=== PATIENT | male | born 1985 | race Caucasian/White ===

== ENCOUNTER 2018-06-11 16:22 | Emergency (ER) | payer SELFPAY ==
[~2018-06-11] VITALS: Ht 188 cm; Wt 113.4 kg
[2018-06-11] MEDS ORDERED: SODIUM CHLORIDE 0.9% 1000ML 1,000 ML IV STA (16:31)
[2018-06-11 16:46] LABS: BASOPHILS # (AUTO) 0.1 (0.0-0.1); BASOPHILS % 0.7 % (0.0-1.0); EOSINOPHILS # (AUTO) 0.3 (0.0-0.4); EOSINOPHILS % 2.2 % (0.0-6.0); HEMATOCRIT 55.4 % (38.2-49.6); HEMOGLOBIN 19.2 g/dL (14.0-18.0); LYMPHOCYTES # (AUTO) 2.4 (1.0-3.2); LYMPHOCYTES % 20.1 % (18.0-39.1); MEAN CORPUSCULAR HEMOGLOBIN 29.6 pg (28-32); MEAN CORPUSCULAR HGB CONC 34.7 g/dL (31-35); MEAN CORPUSCULAR VOLUME 85.4 fL (81-99); MONOCYTES # (AUTO) 0.8 (0.2-0.8); MONOCYTES % 6.8 % (4.4-11.3); NEUTROPHILS # (AUTO) 8.4 (2.1-6.9); NEUTROPHILS % 69.9 % (38.7-80.0); PLATELET COUNT 256 x10e3/uL (140-360); RED BLOOD COUNT 6.49 x10e6/uL (4.3-5.7); RED CELL DISTRIBUTION WIDTH 12.3 % (11.7-14.4)
[2018-06-11 16:48] LABS: BILIRUBIN,URINE 1+ (NEGATIVE); CLARITY,URINE SL CLOUDY (CLEAR); COLOR,URINE YELLOW (YELLOW); KETONES,URINE TRACE (NEGATIVE); LEUKOCYTE ESTERASE ,URINE NEGATIVE (NEGATIVE); NITRITE,URINE NEGATIVE (NEGATIVE); PROTEIN,URINE DIPSTICK 2+ (NEGATIVE); URINE UROBILINOGEN 1 mg/dL (0.2 - 1)
[2018-06-11 17:02] LABS: EPITHELIAL CELLS,URINE FEW /LPF; MUCUS,URINE MODERATE (RARE); WBC,URINE (MAN) 0-5 /HPF (0-5)
[2018-06-11 17:05] LABS: ALANINE AMINOTRANSFERASE 89 IU/L (0-55); ALBUMIN 5.3 g/dL (3.5-5.0); ALBUMIN/GLOBULIN RATIO 1.5 (0.8-2.0); ALKALINE PHOSPHATASE 87 IU/L (40-150); BLOOD UREA NITROGEN 16 mg/dL (7-26); BUN/CREATININE RATIO 11 (6-25); CALCIUM 10.6 mg/dL (8.4-10.2); CARBON DIOXIDE 26 mmol/L (22-29); CHLORIDE 96 mmol/L (98-107); CREATINE KINASE 99 IU/L (30-200); CREATININE, SERUM 1.41 mg/dL (0.72-1.25); EST GLOMERULAR FILTRATION RATE 58 ML/MIN (60-); GLUCOSE 94 mg/dL (74-118); SODIUM 138 mmol/L (136-145)
[2018-06-11] MEDS ORDERED: ONDANSETRON HCL INJ 2 MG/ML VIAL IV STA (17:08)
[2018-06-11] MEDS ORDERED: MORPHINE SULFATE INJ 4 MG/ML INJ IV STA (17:08)
[2018-06-11] MEDS ORDERED: CEFTRIAXONE SOD 250 MG VIAL IV ONE (17:15)
[2018-06-11] MEDS ORDERED: AZITHROMYCIN 250 MG TAB PO ONE (17:15)
--- NOTE | 2018-06-11 17:26 | Diagnostic Imaging Report ---
PROCEDURE: CT ABDOMEN AND PELVIS WITHOUT CONTRAST TECHNIQUE: The abdomen and pelvis were scanned utilizing a multidetector helical scanner from the diaphragm to the lesser trochanter after the oral administration of water. No IV contrast was administered per physician's request. Coronal and sagittal multiplanar reformations were obtained. COMPARISON: None. INDICATIONS: left flank, dehydrated FINDINGS: ABSENCE OF INTRAVENOUS CONTRAST DECREASES SENSITIVITY FOR DETECTION OF FOCAL LESIONS AND VASCULAR PATHOLOGY. LOWER THORAX: Unremarkable HEPATOBILIARY: Liver is in the upper limit of normal in size, measuring 16 cm in the right midclavicular line. Moderate diffuse hepatic steatosis. No focal lesions. No biliary ductal dilation. Gallbladder is unremarkable. SPLEEN: Mild splenomegaly, measuring 15.4 cm in craniocaudal diameter PANCREAS: No focal masses or ductal dilatation. ADRENALS: No adrenal nodules. KIDNEYS/URETERS: No renal, ureteral, or bladder calculi. No hydronephrosis, hydroureter, or evidence of obstruction. No significant perinephric stranding. No contour abnormalities. PELVIC ORGANS/BLADDER: The bladder is decompressed, but grossly unremarkable. Prostate is unremarkable.. PERITONEUM / RETROPERITONEUM: No free air or fluid. LYMPH NODES: No lymphadenopathy. VESSELS: Unremarkable. GI TRACT: No bowel dilation or evidence of obstruction. Appendix is well identified and normal in caliber. No pericolonic inflammatory changes. BONES AND SOFT TISSUES: No aggressive lytic lesion. Soft tissues are grossly unremarkable IMPRESSION: 1. No renal, ureteral, or bladder calculi. No hydronephrosis or obstruction. 2. Liver size in the upper limit of normal with moderate diffuse hepatic steatosis. No focal lesions. 3. Mild splenomegaly. Alfonso Santo M.D. Dictated by: Alfonso Santo M.D. on 06/11/2018 at 17:33 Electronically approved by: Alfonso Santo M.D. on 06/11/2018 at 17:33
[2018-06-11] MEDS ORDERED: HYDROCODONE/APAP 7.5MG-325MG 1 EA TAB PO PRN (17:45)
[2018-06-11] MEDS ORDERED: PHENAZOPYRIDINE HCL 100 MG TAB PO ONE (19:00)
[2018-06-11] MEDS ORDERED: ACETAMINOPHEN 325 MG TAB PO ONE (19:15)
[2018-06-11 19:42] VITALS: BP 139/93
== END 2018-06-11 20:00 | disposition home or self-care (01) ==
LOC: ER 16:22
DX: R30.0 Dysuria (principal); N34.1 Nonspecific urethritis
CPT/HCPCS: 36415; 74176; 80053; 81001; 82550; 82553; 84484; 85025; 87086; 99284; J0696; J2405; J7030